=== PATIENT | female | born 1985 | race Caucasian/White ===

== ENCOUNTER 2017-11-17 10:30 | Emergency (ER) | payer BC, OTHER ==
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
[2017-11-17] MEDS ORDERED: IBUPROFEN 600 MG TAB PO ONE (11:46)
[2017-11-17 12:55] VITALS: BP 127/79
== END 2017-11-17 12:58 | disposition home or self-care (01) ==
DX: S42.031A Displaced fracture of lateral end of right clavicle, initial encounter for closed fracture (principal); V18.0XXA Pedal cycle driver injured in noncollision transport accident in nontraffic accident, initial encounter; Y92.410 Unspecified street and highway as the place of occurrence of the external cause; Y99.8 Other external cause status; Y93.55 Activity, bike riding